=== PATIENT | female | born 1955 | race Caucasian/White ===

== ENCOUNTER 2018-11-25 18:31 | Outpatient (CLI) | payer OTHER | END 2018-11-25 18:32 | disposition critical access hospital (66) | LOC: EMS 18:31 | PROVIDERS: ATTEND Surgery | DX: M25.562 Pain in left knee (principal); M25.531 Pain in right wrist; W54.1XXA Struck by dog, initial encounter; W18.39XA Other fall on same level, initial encounter; Y93.K1 Activity, walking an animal; Y92.830 Public park as the place of occurrence of the external cause | CPT/HCPCS: A0425; A0429 ==

== ENCOUNTER 2018-11-25 18:49 | Emergency (ER) | payer OTHER ==
--- NOTE | 2018-11-25 19:36 | ED Physician Documentation ---
History of Present Illness - Stated complaint Stated Complaint: LEFT KNEE, RIGHT WRIST VS DOG - Chief complaint Chief Complaint: General - History obtained from History obtained from: Patient, EMS - History of Present Illness Timing: Today Pain level max: 8 Pain level now: 8 - Additonal information Additional information: 62-year-old female [place] the dog park today, dogs were running and collided into her left knee knocking her to the ground. She injured her left knee and right wrist. Unable to ambulate. EMS was called and brought here. Worse with movement better with rest. She declines all pain medication at this time. No head injury. No loss of consciousness. No neck or back pain. Review of Systems Constitutional: denies: Fever, Chills GI: denies: Vomiting Skin: denies: Rash Musculoskeletal: denies: Neck pain, Back pain Neurologic: denies: Headache PD PAST MEDICAL HISTORY - Past Medical History Past Medical History: Yes Endocrine/Autoimmune: HyPOthyroidism - Past Surgical History Past Surgical History: No - Present Medications Home Medications: Ambulatory Orders Medication Instructions Recorded Confirmed Hydrocodone/Acetaminophen 1 - 2 each PO Q6H PRN #10 tablet 11/25/18 [Hydrocodon-Acetaminophen 5-325] Levothyroxine [Synthroid] 125 mcg PO QDAC 11/25/18 11/25/18 - Allergies Allergies/Adverse Reactions: Allergies Allergy/AdvReac Type Severity Reaction Status Date / Time No Known Drug Allergies Allergy Verified 11/25/18 18:58 - Living Situation Living Arrangement: reports: At home - Social History Does the pt smoke?: No Smoking Status: Never smoker Does the pt drink ETOH?: No Does the pt have substance abuse?: No PD ED PE NORMAL - Vitals Vital signs reviewed: Yes - General General: Alert and oriented X 3, No acute distress - HEENT HEENT: Atraumatic, Moist mucous membranes - Neck Neck: Supple, no meningeal sign, No bony TTP - Cardiac Cardiac: RRR - Respiratory Respiratory: No respiratory distress, Clear bilaterally - Abdomen Abdomen: Soft, Non tender, Non distended - Derm Derm: Warm and dry - Extremities Extremities: Other (Left knee - Tender to palpation along the lateral tibial plateau. Moderate joint effusion. ACL, MCL, PCL feel intact, there is LCL laxity. Neurovascularly intact. Soft compartments.. Right wrist is tender at the distal radius, no snuffbox tenderness. Neurovascularly intact. Most of the pain is with active range of motion rather than palpation.) - Neuro Neuro: Alert and oriented X 3 Results - Vitals Vitals: Vital Signs - 24 hr 11/25/18 11/25/18 18:53 20:02 Temperature 36.2 C L Heart Rate 75 62 Respiratory 16 18 Rate Blood Pressure 114/83 H 121/84 H O2 Saturation 100 97 Oxygen O2 Source Room air - Rads (name of study) Right wrist x-ray Radiology: Prelim report reviewed, EMP read contemporaneously, See rad report (No acute fracture identified, noting what appears to be an old fracture deformity of the distal radius. 2. Osteoarthritis at the first carpometacarpal joint. ) Left knee x-ray Radiology: Prelim report reviewed, EMP read contemporaneously, See rad report (Comminuted lateral tibial plateau fracture with central depression, with hemarthrosis noted. ) Left knee CT Radiology: Prelim report reviewed, EMP read contemporaneously, See rad report (Moderately comminuted and impacted fracture lateral tibial plateau with vertically oriented split component anteriorly (Schatzker type II). 2. Fracture involves the majority of the articular surface lateral tibial plateau with extension into the lateral tibial spine. 3. Impaction at the central aspect lateral tibial plateau measures 1.4 cm. 4. Large lipohemarthrosis. ) Procedures - Splint (location) LLE Splint applied by: Physician, Tech Type of splint: Fiberglass, Short leg, Posterior Other: Patient tolerated well, No complications, Neurovascular intact PD MEDICAL DECISION MAKING - ED course Complexity details: reviewed results, re-evaluated patient, considered differential, d/w patient, d/w disaster recovery consultant ED course: 62-year-old female presents to the emergency department and is found to have a right wrist sprain as well as a left knee lateral tibial plateau fracture. Compartments are soft. Neurovascularly intact. Discussed the case with Dr. Pop who reviewed the images as well as the CT scan and recommends a bulky dressing under a flexed knee immobilizer. No knee immobilizer is available, therefore a posterior splint with fiberglass will be placed. This was also discussed with Dr. Pop. Recommend follow-up in clinic in the next few days for repeat evaluation. Patient counseled regarding signs and symptoms for which I believe and urgent re-evaluation would be necessary. Patient with good understanding of and agreement to plan and is comfortable going home at this time This document was made in part using voice recognition software. While efforts are made to proofread this document, sound alike and grammatical errors may occur. Departure - Departure Disposition: 01 Home, Self Care Clinical Impression: Sprain of wrist, right Qualifiers: Encounter type: initial encounter Qualified Code(s): S63.501A - Unspecified sprain of right wrist, initial encounter Closed fracture of lateral portion of left tibial plateau Qualifiers: Encounter type: initial encounter Qualified Code(s): S82.122A - Displaced fracture of lateral condyle of left tibia, initial encounter for closed fracture Condition: Good Instructions: ED Fx Knee, ED Sprain Wrist Follow-Up: Ermias Pop MD [Provider Admit Priv/Credential] - Within 3 Days Prescriptions: Hydrocodone/Acetaminophen [Hydrocodon-Acetaminophen 5-325] 1 - 2 each PO Q6H PRN #10 tablet PRN Reason: pain Comments: Follow-up with Dr. Pop in the next 3 days. Call his office tomorrow for an appointment. I spoke with him tonight and he reviewed your CT scans. This will need an operation. Return if you worsen. Do not drink alcohol or drive while on narcotic pain medicine. Note that many narcotic pain relievers also contain tylenol/acetaminophen. Please ensure that your total dose of acetaminophen from all sources does not exceed 3 grams (3000mg) per day. You may constipated on this medication, take a stool softener such as "Colace" twice a day while you are on it. Also recommend a [id number]-[id number] laxative such as senna or MiraLAX any day that you do not have a bowel movement. If you received narcotic pain medication in the emergency department, do not drive or operate machinery for the next 24 hours.
--- NOTE | 2018-11-25 19:48 | XRAY Report ---
Reason: L knee pain s/p dog running into leg Procedure Date: 11/25/2018 Accession Number: [id number] / [id number] Procedure: XR - Knee 4 View LT CPT Code: FULL RESULT: EXAM: LEFT KNEE RADIOGRAPHY EXAM DATE: 11/25/2018 07:03 PM. CLINICAL HISTORY: Left knee pain s/p dog running into leg and falling. COMPARISON: WRIST 4 VIEW RT 11/25/2018 6:56 PM. TECHNIQUE: 4 views. FINDINGS: Bones: Comminuted lateral tibial plateau fracture with central depression. No other osseous abnormality. Joints: Hemarthrosis. No subluxations. Soft Tissues: Unremarkable. IMPRESSION: Comminuted lateral tibial plateau fracture with central depression, with hemarthrosis noted. RADIA
--- NOTE | 2018-11-25 19:59 | XRAY Report ---
Reason: R wrist pain s/p fall Procedure Date: 11/25/2018 Accession Number: [id number] / [id number] Procedure: XR - Wrist 4 View RT CPT Code: FULL RESULT: EXAM: RIGHT WRIST RADIOGRAPHY EXAM DATE: 11/25/2018 07:33 PM. CLINICAL HISTORY: Right wrist pain s/p fall. COMPARISON: None. TECHNIQUE: 4 views. FINDINGS: Bones: Deformity of the distal radius without visible fracture line suggesting prior fracture. No acute fracture identified. Joints: Doing and sclerosis at the first carpometacarpal joint. No subluxations. Soft Tissues: Unremarkable. IMPRESSION: 1. No acute fracture identified, noting what appears to be an old fracture deformity of the distal radius. 2. Osteoarthritis at the first carpometacarpal joint. RADIA
[2018-11-25] MEDS ORDERED: IBUPROFEN 400 MG TABLET PO STA (20:25)
[2018-11-25] MEDS ORDERED: HYDROcod/ACET 5/325 Prepack 4 PO STA (20:39)
--- NOTE | 2018-11-25 21:00 | CT Report ---
Reason: L knee tibial plateau fx Procedure Date: 11/25/2018 Accession Number: [id number] / [id number] Procedure: CT - LOWER EXTREMITY WO - LT CPT Code: FULL RESULT: EXAM: LEFT KNEE CT WITHOUT CONTRAST. EXAM DATE: 11/25/2018 08:30 PM. CLINICAL HISTORY: Left knee tibial plateau fracture. COMPARISON: Radiographs 11/25/2018. TECHNIQUE: Thin-section axial images were acquired of the knee without contrast. Post-processing: Coronal and sagittal reformats. Other: None. In accordance with CT protocol optimization, one or more of the following dose reduction techniques were utilized for this exam: automated exposure control, adjustment of mA and/or KV based on patient size, or use of iterative reconstructive technique. FINDINGS: Bones: Moderately comminuted and impacted fracture at the lateral tibial plateau. This involves a region measuring 4.2 x 3.4 cm, AP by transverse. This is the majority of the articular surface lateral tibial plateau. Impaction centrally measures up to 1.4 cm. Fracture extends into the lateral tibial spine. Vertically oriented split component extends into the anterior cortex medial tibial metaphysis. Joints: Impaction of the lateral femoral condyle into the fracture site at the lateral tibial plateau with mild widening at the medial aspect medial compartment. Mild joint space narrowing at the medial and patellofemoral compartments. Large lipohemarthrosis. Musculature: No focal fatty atrophy. Limited evaluation for muscle edema on CT. Other: Small popliteal cyst. Mild subcutaneous edema anteriorly. IMPRESSION: 1. Moderately comminuted and impacted fracture lateral tibial plateau with vertically oriented split component anteriorly (Schatzker type II). 2. Fracture involves the majority of the articular surface lateral tibial plateau with extension into the lateral tibial spine. 3. Impaction at the central aspect lateral tibial plateau measures 1.4 cm. 4. Large lipohemarthrosis. RADIA
[2018-11-25 21:33] VITALS: BP 140/90
== END 2018-11-25 22:16 | disposition home or self-care (01) ==
LOC: ED 18:49
DX: S63.501A Unspecified sprain of right wrist, initial encounter (principal); S82.121A Displaced fracture of lateral condyle of right tibia, initial encounter for closed fracture; W54.1XXA Struck by dog, initial encounter; Y92.830 Public park as the place of occurrence of the external cause; E03.9 Hypothyroidism, unspecified
CPT/HCPCS: 29515; 73110; 73564; 73700; 99283; A9270